=== PATIENT | female | born 1995 | race Caucasian/White ===

== ENCOUNTER 2018-05-21 12:43 | Outpatient (CLI) | payer OTHER ==
--- NOTE | 2018-05-21 15:40 | ULT ---
OB ULTRASOUND: 05/21/18 HISTORY: Patient feels like she is leaking fluid. FINDINGS: A single live intrauterine gestation is seen and measurements corresponding to an estimated gestation al age of 27 weeks, 4 days and SHIN at 08/16/18. Estimated weight measures 1052 grams (2 lb. 5 oz.). measurements are as follows: BPD 6.80 cm 27 weeks, 3 days HC 25.85 cm 28 weeks, 1 day AC 23.07 cm 27 weeks, 3 days FL 4.98 cm 26 weeks, 6 days JAELYN measurement is 5.9 cm. The placenta is anteriorly located without evidence of placenta previa. The umbilical cord is at the internal os. Three vessel cord, cord insertion, kidneys, bladder, stomach, four chambered heart, lateral ventricle s, cerebellum, spine, upper and lower extremities are visualized and demonstrate no definite an omalies. Lips and nose are difficult to visualize. Cervical length measures 2.8 cm. IMPRESSION: 1. Single live IUP of 27 weeks, 4 days estimated gestational age and SHIN at 08/16/18. 2. Oligohydramnios. 3. Vasa previa. POS: [facility]
== END 2018-05-21 12:44 | disposition home or self-care (01) ==
LOC: SCSULT 12:43
PROVIDERS: ATTEND Family Medicine
DX: O09.92 Supervision of high risk pregnancy, unspecified, second trimester (principal); O41.02X0 Oligohydramnios, second trimester, not applicable or unspecified; O69.4XX0 Labor and delivery complicated by vasa previa, not applicable or unspecified; Z3A.27 27 weeks gestation of pregnancy
CPT/HCPCS: 76805

== ENCOUNTER 2018-05-23 11:37 | Day surgery (SDC) | payer OTHER ==
[2018-05-23 13:00] VITALS: TEMP 99.1; BMI 27.7
[2018-05-23] MEDS ORDERED: Betamet Acet/Betamet Na Ph 30 MG/5 ML VIAL IM SCH (13:30)
[2018-05-23] MEDS ORDERED: Betamet Acet/Betamet Na Ph 30 MG/5 ML VIAL ONE (13:44)
--- NOTE | 2018-05-23 14:12 | PDOC.LDHP ---
Labor and Delivery H&P Chief complaint: loss of fluid HPI: 23 y/o at 27w6d, patient of Dr. Verdin, presents with LOF x 3 days. She was seen for her first OB visit at [facility] on Saturday and had an ultrasound performed. Natalee at was reviewing the results today and noted low fluid. After calling the patient, she admitted to have been experiencing leaking for the last few days with spotting. Having multiple gushes with persistent leaking. Denies heavy VB, ctx, or decreased FM. Of note, previous US reports vasa previa. ROS neg for HEENT, cv, pulm, gi, gu, neuro, psych, skin, musculoskeletal or constitutional symptoms other than mentioned above. OB History Details: 1st with 3rd degree laceration 2nd primary LTCS due to previous 3rd degree Now desires Current complications: none Past Medical History: None Current medications: pre-akosua vitamins Previous surgical history: low tranverse CS Social history: none - Physical Exam Vital signs reviewed and normal: yes General: NAD, resting Lungs: nonlabored breathing Abdomen: gravid Extremeties: no edema FHT: category 1 (140s, mod variability, + accels, no decels) [place] contractions every: none - Vaginal Exam cm dilated: 0 (SSE neg for pooling or valsalva.) Effacement: 0% Station: -3 - OB Labs Additional Labs: Amnisure negative - Assessment 23 y/o at 27w6d with no e/o SROM. Repeat ultrasound with no e/o vasa previa but does have prominent cervical vessels. JAELYN 7cm, with DVP of 2.91 so no e/o oligohydramnios. VP3 + for gardnerella. - Plan -: D/c home with precautions. Advised to follow up with Dr. Verdin next week. GC/ CT, pending. Given Rx for Flagyl.
[2018-05-23 14:16] LABS: Amnisure Test No Membranes Rupture (No Rupture)
[2018-05-23 14:17] LABS: Amnisure Internal Control QC ACCEPTABLE (ACCEPTABLE)
--- NOTE | 2018-05-23 14:52 | ULT ---
LIMITED OB ULTRASOUND: DATE: 05/23/2018. PROVIDED CLINICAL HISTORY: Cervical pain. FINDINGS: Limited sonographic interrogation of the gravid uterus was performed. There is redemonstration of a single live intrauterine gestation in cephalic presentation with heart rate of 150 b.p.m. Amniotic f luid index is 7.0. The placental margin appears remote from the internal cervical os. There is abno rmal vascularity seen about the internal cervical os. There is no sonographic evidence to suggest th at this vascularity is related to the umbilical cord. IMPRESSION: 1. Abnormal vascularity of the uterine cervix, without sonographic evidence for a connection to the umbilical cord. 2. Amniotic fluid index is 7.0. POS: [facility]
[2018-05-26 22:19] LABS: Chlamydia by PCR Not Detected (NotDetected); GC by PCR Not Detected (NotDetected)
== END 2018-05-23 15:00 | disposition home or self-care (01) ==
LOC: SCSER 11:37 → L&D/OP 12:26
PROVIDERS: ATTEND Family Medicine
DX: O26.852 Spotting complicating pregnancy, second trimester (principal); O23.592 Infection of other part of genital tract in pregnancy, second trimester; B96.89 Other specified bacterial agents as the cause of diseases classified elsewhere; Z3A.27 27 weeks gestation of pregnancy
CPT/HCPCS: 76816; 84112; 87081; 87480; 87491; 87510; 87591; 87660; 99284; 99285; J0702

== ENCOUNTER 2018-06-03 22:47 | Inpatient (IN) | payer OTHER ==
[2018-06-03 23:29] VITALS: BMI 27.7
[2018-06-04 00:18] LABS: Amnisure Internal Control QC ACCEPTABLE (ACCEPTABLE); Amnisure Test RUPTURE DETECTED (No Rupture)
[2018-06-04] MEDS ORDERED: Calcium Gluc 4.6 MEQ/10 ML (100 MG/ML) SLOW IVP PRN (00:29)
[2018-06-04] MEDS ORDERED: Meperidine HCl/PF 25 MG/ML VIAL IM/IV PRN (00:29)
[2018-06-04] MEDS ORDERED: Ondansetron PF 4 MG/2 ML Vial IVP PRN (00:29)
--- NOTE | 2018-06-04 00:42 | PDOC.LDHP ---
Labor and Delivery H&P Chief complaint: loss of fluid HPI: 23 yo WF presents c/o loss of fluid thru out the day. Denies UCs but has had spotting. Seen 2 weeks ago with similar c/o, Amnisure was negative but JAELYN was only 7 at that time. Current gestational age (weeks): 29 Due date: 08/16/18 Dating criteria: second trimester ultrasound Grav: 4 Para: 2 OB History Details: Limited PNC with Dr. Verdin x 2 visits. Current complications: other (as above) Abnormal US findings: No Past Medical History: none Previous surgical history: other (T&A, hysteroscopic polypectomy) Allergies/Adverse Reactions: Allergies Allergy/AdvReac Type Severity Reaction Status Date / Time No Known Allergies Allergy Unverified 06/03/18 23:47 Social history: none - Physical Exam Vital signs reviewed and normal: yes General: NAD Heart: RRR Lungs: CTAB Abdomen: gravid Extremeties: trace edema FHT: category 1 [place] contractions every: no UCs seen - OB Labs Blood type: unknown RH: unknown Antibody Screen: unknown HIV: unknown RPR: unknown HEPSAg: unknown 1 hour GCT: unknown GBS: negative - Assessment L&D Assessment: premature rupture of membranes - Plan Plan: admit to L&D, magnesium for neuroprotection (Ampicillin and Zmax for latency, steroids for FLM, USG for EFW), informed consent obtained (deliver for chorioamnionitis, concern or labor, Dr. Verdin notified)
[2018-06-04] MEDS ORDERED: Ampicillin 2 GM in Sodium Chloride 0.9% 100 ML IVPB SCH (00:45)
[2018-06-04] MEDS ORDERED: Azithromycin 500 MG in Sodium Chloride 0.9% 250 ML 250 ML IVPB SCH (00:45)
[2018-06-04] MEDS: Lactated Ringer's 1,000 ML IV SCH ×3 (00:52→20:29)
[2018-06-04] MEDS: Betamet Acet/Betamet Na Ph 30 MG/5 ML VIAL IM SCH (00:53)
[2018-06-04] MEDS ORDERED: Magnesium Sulfate 20 GM/WATER 500 ML BAG IVPB SCH (01:00)
[2018-06-04 01:06] LABS: Hemoglobin 11.2 g/dL (12.0-16.0); Mean Corpuscular HGB CONC 34.1 g/dL (32.0-36.0); Mean Corpuscular Hemoglobin 30.4 pg (27.0-31.0); Mean Corpuscular Volume 89.4 fL (78.0-98.0); Mean Platelet Volume 7.6 fL (7.4-10.4); Platelet Count 186 thou/uL (130-400); RBC Distribution Width 14.1 % (11.5-14.5); Red Blood Cell (RBC) Count 3.69 mill/uL (4.20-5.40); White Blood Cell (WBC) Count 9.8 thou/uL (4.8-10.8)
[2018-06-04 01:47] LABS: Syphilis Antibody Nonreactive (Nonreactive); Syphilis Antibody Index 0.03 S/CO (<1.00 Non-Reactive)
[2018-06-04 02:05] LABS: HBSAg Index 0.21 S/CO (0-0.99); Hep B Surf Ag Non-Reactive S/CO (NonReactive)
[2018-06-04] MEDS: Ampicillin 2 GM in Sodium Chloride 0.9% 100 ML IVPB SCH ×3 (07:06→18:15)
--- NOTE | 2018-06-04 07:35 | ULT ---
LIMITED OBSTETRICAL ULTRASOUND: Date: 06/04/18 INDICATION: History of premature rupture of membranes at 29 weeks of intrauterine . FINDINGS: There is a single, live intrauterine gestation in vertex presentation with cardiac activity noted at 137 beats/minute. The cervical length is 2.6 cm. The amniotic fluid index is 3.8 cm. Placenta is ante rior in location without evidence of previa. The biparietal diameter measures 7.58 cm, giving an estimated gestational age of 30 weeks/3 days (65t h percentile by Hadlock). The head circumference measured 28.18 cm, giving an estimated gestational age of 30 weeks/6 days (55t h percentile). The abdominal circumference was 24.19 cm, giving an estimated gestational age of 28 weeks/6 days (23r d percentile). The femoral length was 5.27 cm, giving an estimated gestational age of 28 weeks/5 days (15h percentil e. The estimated weight is 1336 gm (22nd percentile). IMPRESSION: 1. Single live intrauterine gestation. 2. Oligohydramnios of 3.8 cm. This previously measured 7.0 cm on the comparison dated 05/23/18. 3. Estimated weight is 2 lbs and 15 oz (+/- 7 oz) (22nd percentile). 4. Average gestational age by ultrasound is 29 weeks/6 days. Estimated date of delivery is 08/14/18. 5. Cervical length was 2.6 cm. POS: [facility]
[2018-06-04] MEDS: Magnesium Sulfate 20 gm/500 ml 20 GM/500 ML BAG IVPB SCH ×2 (10:32→20:26)
[2018-06-04] MEDS: Butorphanol Tartrate 1 MG/ML VIAL SLOW IVP PRN (20:28)
[2018-06-05] MEDS: Ampicillin 2 GM in Sodium Chloride 0.9% 100 ML IVPB SCH ×4 (00:43→19:22)
[2018-06-05] MEDS: Betamet Acet/Betamet Na Ph 30 MG/5 ML VIAL IM SCH (00:45)
[2018-06-05] MEDS: Magnesium Sulfate 20 gm/500 ml 20 GM/500 ML BAG IVPB SCH ×2 (09:52→19:24)
[2018-06-05] MEDS: Acetaminophen 500 MG TAB PO PRN (17:43)
[2018-06-06] MEDS: Ampicillin 2 GM in Sodium Chloride 0.9% 100 ML IVPB SCH ×4 (01:27→20:21)
[2018-06-06] MEDS: Lactated Ringer's 1,000 ML IV SCH ×2 (12:14→20:22)
[2018-06-07] MEDS: AMOXicillin 250 MG CAP PO SCH ×4 (00:38→18:08)
[2018-06-07] MEDS: Prenatal Vitamin 1 TAB PO SCH (09:28)
[2018-06-07] MEDS: Azithromycin 250 MG TAB PO SCH (09:28)
[2018-06-07] MEDS: Floranex Packet PO SCH (12:15)
[2018-06-07] MEDS: Acetaminophen 500 MG TAB PO PRN (12:21)
[2018-06-08] MEDS: AMOXicillin 250 MG CAP PO SCH ×5 (00:14→23:47)
[2018-06-08] MEDS: Prenatal Vitamin 1 TAB PO SCH (10:07)
[2018-06-08] MEDS: Azithromycin 250 MG TAB PO SCH (10:07)
[2018-06-08] MEDS: Floranex Packet PO SCH (10:07)
[2018-06-08 21:17] LABS: Bilirubin Negative (Negative); Blood, Urine Negative (Negative); Clarity TURBID (Clear); Glucose, Urine (Dipstick) Negative (Negative); Leukocyte Negative (Negative); Nitrite Negative (Negative); Protein, Urine (Dipstick) Negative (Neg-Trace); Specific Gravity, Urine 1.014 (1.002-1.036)
[2018-06-08 21:18] LABS: Bacteria/HPF None Seen HPF (None Seen); Hyaline Casts/LPF 4-6 HYALINE CAST LPF (0-3 Hyaline); Pathc Cast-AUWi Flag 0.72 (0-2.49); RBC/HPF 0-3 HPF (0-3); Squamous Epithelial 0-3 HPF (0-3); WBC/HPF 0-3 HPF (0-3)
[2018-06-08] MEDS: Lactated Ringer's 1,000 ML IV SCH (22:16)
[2018-06-08] MEDS: Butorphanol Tartrate 1 MG/ML VIAL SLOW IVP PRN (22:16)
[2018-06-09] MEDS: Lactated Ringer's 1,000 ML IV SCH ×2 (03:16→10:42)
[2018-06-09] MEDS: AMOXicillin 250 MG CAP PO SCH ×3 (06:16→23:57)
[2018-06-09] MEDS: Prenatal Vitamin 1 TAB PO SCH (08:54)
[2018-06-09] MEDS: Floranex Packet PO SCH (08:54)
[2018-06-09] MEDS: Azithromycin 250 MG TAB PO SCH (08:55)
[2018-06-10] MEDS: Lactated Ringer's 1,000 ML IV SCH ×2 (05:50→23:34)
[2018-06-10] MEDS: AMOXicillin 250 MG CAP PO SCH ×3 (05:51→19:29)
[2018-06-10] MEDS: Azithromycin 250 MG TAB PO SCH (09:38)
[2018-06-10] MEDS: Floranex Packet PO SCH (09:40)
[2018-06-10] MEDS: Prenatal Vitamin 1 TAB PO SCH (10:05)
[2018-06-11] MEDS: Lactated Ringer's 1,000 ML IV SCH ×3 (00:33→23:40)
[2018-06-11] MEDS: AMOXicillin 250 MG CAP PO SCH ×4 (01:12→19:52)
[2018-06-11] MEDS: Floranex Packet PO SCH (09:56)
[2018-06-11] MEDS: Prenatal Vitamin 1 TAB PO SCH (09:56)
[2018-06-12] MEDS: AMOXicillin 250 MG CAP PO SCH ×4 (01:24→21:13)
[2018-06-12] MEDS: Lactated Ringer's 1,000 ML IV SCH (06:49)
[2018-06-12] MEDS: Prenatal Vitamin 1 TAB PO SCH (08:51)
[2018-06-12] MEDS: Floranex Packet PO SCH (08:51)
[2018-06-13] MEDS: AMOXicillin 250 MG CAP PO SCH ×2 (02:51→08:34)
[2018-06-13] MEDS: Prenatal Vitamin 1 TAB PO SCH (08:34)
[2018-06-13] MEDS: Floranex Packet PO SCH (08:34)
[2018-06-13] MEDS: Acetaminophen 500 MG TAB PO PRN (15:16)
[2018-06-14] MEDS: AMOXicillin 250 MG CAP PO SCH ×7 (00:21→22:00)
[2018-06-14] MEDS: Promethazine HCl 25 MG/ML VIAL IM PRN (09:25)
[2018-06-14] MEDS: Acetaminophen 500 MG TAB PO PRN ×2 (09:25→18:03)
[2018-06-14] MEDS: Floranex Packet PO SCH (18:03)
[2018-06-14] MEDS: Prenatal Vitamin 1 TAB PO SCH (18:03)
[2018-06-15] MEDS: AMOXicillin 250 MG CAP PO SCH ×3 (09:18→20:53)
[2018-06-15] MEDS: Prenatal Vitamin 1 TAB PO SCH (09:18)
[2018-06-15] MEDS: Floranex Packet PO SCH (09:20)
[2018-06-15] MEDS: Lactated Ringer's 1,000 ML IV SCH ×5 (12:15→20:50)
[2018-06-15] MEDS: Promethazine HCl 25 MG/ML VIAL IM PRN (12:29)
[2018-06-15] MEDS: Acetaminophen 500 MG TAB PO PRN (12:53)
[2018-06-15] MEDS: Butorphanol Tartrate 1 MG/ML VIAL SLOW IVP PRN (18:30)
[2018-06-16] MEDS: Lactated Ringer's 1,000 ML IV SCH ×3 (00:38→16:59)
[2018-06-16] MEDS: Prenatal Vitamin 1 TAB PO SCH (08:38)
[2018-06-16] MEDS: Floranex Packet PO SCH (08:38)
[2018-06-16] MEDS: AMOXicillin 250 MG CAP PO SCH ×3 (08:39→21:54)
[2018-06-16] MEDS: Docusate Calcium (SURFAK) 240 MG CAP PO SCH (09:42)
[2018-06-16] MEDS: Lactinex Tablet PO SCH (16:58)
[2018-06-17] MEDS: Lactated Ringer's 1,000 ML IV SCH ×3 (07:08→17:20)
[2018-06-17] MEDS: Lactinex Tablet PO SCH (09:25)
[2018-06-17] MEDS: Prenatal Vitamin 1 TAB PO SCH (09:25)
[2018-06-17] MEDS: Docusate Calcium (SURFAK) 240 MG CAP PO SCH (09:25)
[2018-06-17] MEDS: AMOXicillin 250 MG CAP PO SCH ×3 (09:25→21:01)
[2018-06-18] MEDS: Prenatal Vitamin 1 TAB PO SCH (09:24)
[2018-06-18] MEDS: AMOXicillin 250 MG CAP PO SCH ×3 (09:24→20:32)
[2018-06-18] MEDS: Docusate Calcium (SURFAK) 240 MG CAP PO SCH (09:24)
[2018-06-18] MEDS: Lactinex Tablet PO SCH (09:24)
[2018-06-18] MEDS ORDERED: Ondansetron HCl/PF 4 MG in Sodium Chloride 0.9% 50 ML IVPB PRN (11:37)
[2018-06-18] MEDS: Ondansetron ODT 8 MG TAB SL PRN (11:56)
[2018-06-18] MEDS: Lactated Ringer's 1,000 ML IV SCH (19:28)
[2018-06-19] MEDS: Lactated Ringer's 1,000 ML IV SCH ×3 (02:42→19:12)
[2018-06-19] MEDS: Prenatal Vitamin 1 TAB PO SCH (08:42)
[2018-06-19] MEDS: AMOXicillin 250 MG CAP PO SCH ×3 (08:42→21:03)
[2018-06-19] MEDS: Lactinex Tablet PO SCH (08:42)
[2018-06-19] MEDS: Docusate Calcium (SURFAK) 240 MG CAP PO SCH (08:43)
[2018-06-20] MEDS: Lactated Ringer's 1,000 ML IV SCH (05:26)
[2018-06-20] MEDS: Prenatal Vitamin 1 TAB PO SCH (09:42)
[2018-06-20] MEDS: AMOXicillin 250 MG CAP PO SCH ×2 (09:42→15:11)
[2018-06-20] MEDS: Lactinex Tablet PO SCH (09:42)
[2018-06-20] MEDS: Docusate Calcium (SURFAK) 240 MG CAP PO SCH (09:43)
[2018-06-21] MEDS: Acetaminophen 500 MG TAB PO PRN ×2 (01:44→07:18)
[2018-06-21] MEDS: Prenatal Vitamin 1 TAB PO SCH (08:39)
[2018-06-21] MEDS: Ondansetron ODT 8 MG TAB SL PRN (15:57)
[2018-06-21] MEDS: Lactated Ringer's 1,000 ML IV SCH (23:00)
[2018-06-22] MEDS: Prenatal Vitamin 1 TAB PO SCH (10:19)
[2018-06-22] MEDS: Docusate Calcium (SURFAK) 240 MG CAP PO SCH ×2 (10:19→15:04)
[2018-06-22] MEDS: Lactinex Tablet PO SCH ×2 (10:19→15:04)
[2018-06-22] MEDS: Lactated Ringer's 1,000 ML IV SCH ×3 (15:04→19:31)
[2018-06-23] MEDS: Lactated Ringer's 1,000 ML IV SCH ×4 (03:37→18:55)
[2018-06-23] MEDS: Prenatal Vitamin 1 TAB PO SCH (09:49)
[2018-06-23] MEDS: Docusate Calcium (SURFAK) 240 MG CAP PO SCH (09:49)
[2018-06-23] MEDS: Acetaminophen 500 MG TAB PO PRN (09:50)
[2018-06-23] MEDS: Lactinex Tablet PO SCH (09:50)
[2018-06-23] MEDS: Butorphanol Tartrate 1 MG/ML VIAL SLOW IVP PRN ×3 (10:41→21:43)
[2018-06-23 11:25] LABS: Bilirubin Negative (Negative); Blood, Urine Negative (Negative); Glucose, Urine (Dipstick) Negative (Negative); Leukocyte Negative (Negative); Nitrite Negative (Negative); Protein, Urine (Dipstick) Negative (Neg-Trace); Urobilinogen 0.2 mg/dL (0.2-1.0); pH, Urine 7.5 (5.0-9.0)
[2018-06-23 11:26] LABS: Clarity CLEAR (Clear)
[2018-06-23 12:46] LABS: Bacteria/HPF None Seen HPF (None Seen); Hyaline Casts/LPF NONE SEEN LPF (0-3 Hyaline); RBC/HPF None Seen HPF (0-3); Squamous Epithelial 0-3 HPF (0-3); WBC/HPF None Seen HPF (0-3)
[2018-06-24] MEDS: Lactated Ringer's 1,000 ML IV SCH ×4 (03:03→23:18)
[2018-06-24] MEDS: Prenatal Vitamin 1 TAB PO SCH (09:19)
[2018-06-24] MEDS: Docusate Calcium (SURFAK) 240 MG CAP PO SCH (09:19)
[2018-06-24] MEDS: Lactinex Tablet PO SCH (10:14)
[2018-06-24] MEDS: Ondansetron ODT 8 MG TAB SL PRN (10:28)
[2018-06-24] MEDS ORDERED: Diphenoxylate HCl/Atropine Tablet PO PRN (16:59)
--- NOTE | 2018-06-25 06:19 | PDOC.EVN ---
Event Note - Event Note Event Note: Resting, no complaints. VSS AF. FHTs are stable. A/P; 32 4/7 weeks SROM, s/p ABX and steroids Cont. expectant mgmt, deliver for labor, chorioamnionitis or concern.
[2018-06-25] MEDS: Lactinex Tablet PO SCH (09:41)
[2018-06-25] MEDS: Docusate Calcium (SURFAK) 240 MG CAP PO SCH (09:41)
[2018-06-25] MEDS: Prenatal Vitamin 1 TAB PO SCH (09:41)
[2018-06-25] MEDS: Lactated Ringer's 1,000 ML IV SCH ×2 (21:41→21:44)
[2018-06-25] MEDS: Butorphanol Tartrate 1 MG/ML VIAL SLOW IVP PRN (21:44)
[2018-06-26] MEDS: Lactated Ringer's 1,000 ML IV SCH ×3 (01:55→20:30)
[2018-06-26] MEDS: Butorphanol Tartrate 1 MG/ML VIAL SLOW IVP PRN ×2 (03:36→13:10)
--- NOTE | 2018-06-26 06:20 | PDOC.EVN ---
Event Note - Event Note Event Note: 06/26/18 EGA: 32 weeks 5 days DX: PPROM, for (s/p ABX and Celestone) S. no new complaints o. VSSAFEBRILE no VB A/P: 32.5 weeks with PPROM...for . Continue expectant care.
[2018-06-26] MEDS: Lactinex Tablet PO SCH (11:13)
[2018-06-26] MEDS: Docusate Calcium (SURFAK) 240 MG CAP PO SCH (11:13)
[2018-06-26] MEDS: Prenatal Vitamin 1 TAB PO SCH (11:13)
[2018-06-26] MEDS: Ondansetron ODT 4 MG TAB SL PRN (13:10)
[2018-06-26] MEDS: HYDROcodone/Acetaminophen 5/325 mg Tablet PO PRN (13:40)
--- NOTE | 2018-06-26 13:58 | PDOC.EVN ---
Event Note - Event Note Event Note: CTSP c/o abdominal discomfort. VSS AF Pt. in no distress. Abdomen is soft. No guarding or rebound. FHTs stable. Only an occasional UC is seen. Plan: Observe for now.
--- NOTE | 2018-06-27 01:30 | PDOC.EVN ---
Event Note - Event Note Event Note: Pt sleeping, no voiced concerns this shift. VSS AF FHTs stable, irregular UCs seen throughout the day. A/P; 32 6/7 weeks, PROM s/p steroids and ABX. Deliver for labor, chorioamnionitis, concern.
[2018-06-27] MEDS: Lactated Ringer's 1,000 ML IV SCH ×2 (04:24→19:38)
[2018-06-27] MEDS: Docusate Calcium (SURFAK) 240 MG CAP PO SCH (10:23)
[2018-06-27] MEDS: Lactinex Tablet PO SCH (10:23)
[2018-06-27] MEDS: Prenatal Vitamin 1 TAB PO SCH (10:23)
--- NOTE | 2018-06-28 00:52 | PDOC.EVN ---
Event Note - Event Note Event Note: OBGYN director of loss prevention: 06/28/18 L&D APU1 EGA 33 weeks 0 days 0040 Patient seen at bedside, she is awake and comfortable. rare CTX. VSS afebrile Abd soft and NT A/P: PPROM at 33 weeks 0 days. S/p celestone and ABX. I reviewed her OHB HX with her...first had a 4th degree, second was elective CS due to 4th degree lac HX and PPH with the first (by her report), and she is still considering TOLAC. I did review Repeat CS with her as well as TOLAC. Risk of 4th degree would be expected to be less due to 34 week EGA. I reviewed with her that ACOG encourages TOLAC/. She is aware of the information. Continue expectant care.
[2018-06-28] MEDS: Butorphanol Tartrate 1 MG/ML VIAL SLOW IVP PRN (03:55)
[2018-06-28] MEDS: Lactated Ringer's 1,000 ML IV SCH ×2 (04:02→21:09)
[2018-06-28] MEDS: Lactinex Tablet PO SCH (08:55)
[2018-06-28] MEDS: Prenatal Vitamin 1 TAB PO SCH (08:55)
[2018-06-28] MEDS: Ondansetron ODT 4 MG TAB SL PRN (15:47)
--- NOTE | 2018-06-29 00:32 | PDOC.EVN ---
Event Note - Event Note Event Note: 33 1/7 weeks. Sleeping. No c/o over the day. VSS AF. Monitoring has been reassuring. Plan: Cont. present mgmt., deliver for labor, chorioamnionitis or concern.
[2018-06-29] MEDS: Docusate Calcium (SURFAK) 240 MG CAP PO SCH (09:03)
[2018-06-29] MEDS: Prenatal Vitamin 1 TAB PO SCH (09:03)
[2018-06-29] MEDS: Lactinex Tablet PO SCH (09:03)
[2018-06-29] MEDS: Ondansetron ODT 4 MG TAB SL PRN (10:45)
[2018-06-30] MEDS: Docusate Calcium (SURFAK) 240 MG CAP PO SCH ×2 (09:20→19:34)
[2018-06-30] MEDS: Prenatal Vitamin 1 TAB PO SCH (09:20)
[2018-06-30] MEDS: Lactinex Tablet PO SCH (10:06)
[2018-06-30] MEDS: Lactated Ringer's 1,000 ML IV SCH (19:34)
[2018-07-01] MEDS: HYDROcodone/Acetaminophen 5/325 mg Tablet PO PRN (00:14)
[2018-07-01] MEDS: Lactated Ringer's 1,000 ML IV SCH ×3 (01:09→18:00)
[2018-07-01] MEDS: Lactinex Tablet PO SCH (09:35)
[2018-07-01] MEDS: Docusate Calcium (SURFAK) 240 MG CAP PO SCH (09:36)
[2018-07-01] MEDS: Prenatal Vitamin 1 TAB PO SCH (09:36)
[2018-07-01] MEDS ORDERED: Diphenoxylate HCl/Atropine Tablet PO PRN (16:24)
[2018-07-01] MEDS ORDERED: Promethazine HCl 25 MG/ML VIAL IM PRN (16:25)
[2018-07-01] MEDS ORDERED: Ondansetron PF 4 MG/2 ML Vial IVP PRN (16:26)
[2018-07-01] MEDS: Acetaminophen 500 MG TAB PO PRN (22:23)
[2018-07-02] MEDS: Prenatal Vitamin 1 TAB PO SCH (08:44)
[2018-07-02] MEDS: Docusate Calcium (SURFAK) 240 MG CAP PO SCH (08:45)
[2018-07-02] MEDS: Butorphanol Tartrate 1 MG/ML VIAL SLOW IVP PRN ×2 (13:05→22:48)
[2018-07-02] MEDS ORDERED: Lactated Ringer's 1,000 ML IV SCH (14:15)
[2018-07-02] MEDS: Acetaminophen 500 MG TAB PO PRN (16:24)
[2018-07-03] MEDS: Prenatal Vitamin 1 TAB PO SCH (08:52)
[2018-07-03] MEDS: Docusate Calcium (SURFAK) 240 MG CAP PO SCH (08:52)
[2018-07-03] MEDS: Butorphanol Tartrate 1 MG/ML VIAL SLOW IVP PRN (22:10)
[2018-07-03] MEDS ORDERED: Lactated Ringer's 1,000 ML IV SCH (23:00)
[2018-07-03] MEDS ORDERED: Bicitra 30 ML UDCUP ONE (23:33)
[2018-07-03] MEDS ORDERED: NS / Oxytocin 40 units/1000ml 1,000 ML ONE (23:53)
[2018-07-03] MEDS ORDERED: Lidocaine 1% (PF) 30 ML VIAL ONE (23:53)
[2018-07-03 23:56] LABS: Hemoglobin 12.4 g/dL (12.0-16.0); Mean Corpuscular HGB CONC 33.2 g/dL (32.0-36.0); Mean Corpuscular Hemoglobin 29.8 pg (27.0-31.0); Mean Corpuscular Volume 89.8 fL (78.0-98.0); Mean Platelet Volume 7.3 fL (7.4-10.4); Platelet Count 122 thou/uL (130-400); RBC Distribution Width 14.1 % (11.5-14.5); Red Blood Cell (RBC) Count 4.15 mill/uL (4.20-5.40); White Blood Cell (WBC) Count 5.5 thou/uL (4.8-10.8)
[2018-07-04] MEDS ORDERED: Bisacodyl 10 MG SUPP PR PRN (00:29)
[2018-07-04] MEDS ORDERED: Milk Of Magnesia 30 ML UDCUP PO PRN (00:29)
[2018-07-04] MEDS ORDERED: Preparation H Ointment 28 GM TUBE PR PRN (00:29)
[2018-07-04] MEDS ORDERED: Benzocaine-Menthol 82.5 ML CAN TOP PRN (00:29)
[2018-07-04] MEDS ORDERED: Ondansetron PF 4 MG/2 ML Vial IVP PRN (00:29)
[2018-07-04] MEDS ORDERED: Lanolin Ointment 7 GM TUBE TOP PRN (00:29)
[2018-07-04] MEDS ORDERED: NS / Oxytocin 40 units/1000ml 1,000 ML IV SCH (00:29)
[2018-07-04] MEDS: HYDROcodone/Acetaminophen 5/325 mg Tablet PO PRN ×4 (00:57→20:48)
[2018-07-04 01:10] LABS: Syphilis Antibody Nonreactive (Nonreactive); Syphilis Antibody Index 0.04 S/CO (<1.00 Non-Reactive)
[2018-07-04 01:11] LABS: HBSAg Index 0.25 S/CO (0-0.99); Hep B Surf Ag Non-Reactive S/CO (NonReactive)
[2018-07-04 01:16] LABS: HIV (1/2) Antibody/Antigen Non-Reactive (NonReactive); HIV 1/2 INDEX 0.13 S/CO (<1.00)
[2018-07-04] MEDS ORDERED: Bicitra 30 ML UDCUP ONE (01:42)
[2018-07-04] MEDS: Ibuprofen 800 MG TAB PO SCH ×3 (05:17→22:47)
[2018-07-04] MEDS: Prenatal Vitamin 1 TAB PO SCH (08:18)
[2018-07-04] MEDS: Ferrous Sulfate 325 MG TAB PO SCH ×2 (08:19→18:45)
[2018-07-04] MEDS: Docusate Calcium (SURFAK) 240 MG CAP PO SCH ×2 (08:19→22:48)
[2018-07-04] MEDS ORDERED: Adacel (T-DAP) 0.5 ML SYRINGE IM ONE (09:00)
[2018-07-04 09:25] LABS: Hemoglobin 9.9 g/dL (12.0-16.0); Mean Corpuscular HGB CONC 34.5 g/dL (32.0-36.0); Mean Corpuscular Hemoglobin 29.7 pg (27.0-31.0); Mean Platelet Volume 7.4 fL (7.4-10.4); Platelet Count 143 thou/uL (130-400); RBC Distribution Width 13.6 % (11.5-14.5); Red Blood Cell (RBC) Count 3.34 mill/uL (4.20-5.40); White Blood Cell (WBC) Count 15.7 thou/uL (4.8-10.8)
[2018-07-04] MEDS ORDERED: Acetaminophen 500 MG TAB PO PRN (23:10)
[2018-07-04] MEDS ORDERED: Azithromycin 250 MG TAB PO SCH (23:15)
[2018-07-04] MEDS ORDERED: SODIUM CHLORIDE 0.9% IVPB SCH (23:30)
[2018-07-04] MEDS ORDERED: GENTAMICIN SULFATE IVPB SCH (23:30)
[2018-07-04] MEDS ORDERED: Ampicillin 2 GM in Sodium Chloride 0.9% 100 ML IVPB SCH (23:59)
[2018-07-05] MEDS ORDERED: Sodium Chloride 0.9% 10 ML ONE (00:06)
[2018-07-05 01:38] LABS: Bilirubin Small (Negative); Blood, Urine Small (Negative); Clarity CLEAR (Clear); Glucose, Urine (Dipstick) Negative (Negative); Leukocyte Negative (Negative); Nitrite Negative (Negative); Protein, Urine (Dipstick) 30 mg/dL (Neg-Trace); Specific Gravity, Urine 1.027 (1.002-1.036); pH, Urine 7.5 (5.0-9.0)
[2018-07-05 01:41] LABS: Bacteria/HPF None Seen HPF (None Seen)
[2018-07-05 01:43] LABS: Hyaline Casts/LPF 0-3 HYALINE CAST LPF (0-3 Hyaline); Oval Fat Bodies/HPF None Seen HPF (None Seen); Sperm/HPF None Seen HPF (None Seen); Transitional Epithelial NONE SEEN HPF (0-3); Trichomonas/HPF None Seen HPF (None Seen); Yeast-All Forms None Seen HPF (None Seen)
[2018-07-05 01:45] LABS: Urine Culture Reflex No No
[2018-07-05] MEDS: HYDROcodone/Acetaminophen 5/325 mg Tablet PO PRN ×2 (03:32→10:53)
[2018-07-05] MEDS: Ibuprofen 800 MG TAB PO SCH ×3 (05:19→21:38)
[2018-07-05] MEDS: Ampicillin 2 GM in Sodium Chloride 0.9% 100 ML IVPB SCH ×3 (07:40→20:56)
[2018-07-05 08:20] LABS: #Eosinphils 0.1 thou/uL (0.0-0.7); #Lymphocytes 0.7 thou/uL (1.20-3.40); #Monocytes 0.7 thou/uL (0.11-0.59); #Neutrophils 8.4 thou/uL (1.40-6.50); %Basophils 0.2 % (0.0-1.0); %Eosinophils 1.5 % (0.0-10.0); %Lymphocytes 7.1 % (21.0-51.0); %Monocytes 7.1 % (0.0-10.0); %Neutrophils 84.1 % (42.0-75.0); Hemoglobin 8.9 g/dL (12.0-16.0); Mean Corpuscular HGB CONC 34.4 g/dL (32.0-36.0); Mean Corpuscular Hemoglobin 30.2 pg (27.0-31.0); Mean Platelet Volume 7.5 fL (7.4-10.4); Platelet Count 143 thou/uL (130-400); RBC Distribution Width 13.9 % (11.5-14.5); Red Blood Cell (RBC) Count 2.95 mill/uL (4.20-5.40)
[2018-07-05] MEDS: Prenatal Vitamin 1 TAB PO SCH (10:53)
[2018-07-05] MEDS: Ferrous Sulfate 325 MG TAB PO SCH ×2 (10:53→18:33)
[2018-07-05] MEDS: Docusate Calcium (SURFAK) 240 MG CAP PO SCH ×2 (10:54→21:38)
[2018-07-05] MEDS ORDERED: Lactated Ringer's 1,000 ML IV SCH (13:45)
[2018-07-05] MEDS ORDERED: Sodium Chloride 0.9% 20 ML ONE (21:23)
[2018-07-05] MEDS ORDERED: Gentamicin Sulfate 270 MG in Sodium Chloride 0.9% 100 ML IVPB SCH (23:30)
[2018-07-06] MEDS: Ampicillin 2 GM in Sodium Chloride 0.9% 100 ML IVPB SCH ×3 (03:10→13:34)
[2018-07-06] MEDS: HYDROcodone/Acetaminophen 5/325 mg Tablet PO PRN ×2 (03:20→08:12)
[2018-07-06] MEDS: Simethicone Chewable 80 MG TAB PO SCH ×5 (03:38→22:47)
[2018-07-06] MEDS: Ibuprofen 800 MG TAB PO SCH ×3 (06:37→22:44)
[2018-07-06] MEDS: Prenatal Vitamin 1 TAB PO SCH (08:12)
[2018-07-06] MEDS: Ferrous Sulfate 325 MG TAB PO SCH ×2 (08:12→18:14)
[2018-07-06] MEDS: Docusate Calcium (SURFAK) 240 MG CAP PO SCH ×2 (08:12→22:44)
[2018-07-06] MEDS: Amoxicillin/Potassium Clav 500 MG TAB PO SCH ×2 (15:06→22:44)
[2018-07-07] MEDS: Ibuprofen 800 MG TAB PO SCH ×2 (06:49→13:17)
[2018-07-07 07:52] VITALS: BP 117/70; TEMP 98.1
[2018-07-07] MEDS: Prenatal Vitamin 1 TAB PO SCH (08:45)
[2018-07-07] MEDS: Docusate Calcium (SURFAK) 240 MG CAP PO SCH (08:45)
[2018-07-07] MEDS: Simethicone Chewable 80 MG TAB PO SCH (08:45)
[2018-07-07] MEDS: Amoxicillin/Potassium Clav 500 MG TAB PO SCH (08:45)
[2018-07-07] MEDS: Ferrous Sulfate 325 MG TAB PO SCH (08:45)
== END 2018-07-07 13:20 | disposition home or self-care (01) | DRG 805 ==
LOC: L&D/OP 22:47 → L&D 06-04 00:31 → 3SW 07-01 16:51 → L&D 07-03 23:29 → 3SW 07-04 02:40
PROVIDERS: ADMIT Family Medicine; ATTEND Family Medicine
PROC: 10E0XZZ Delivery of Products of Conception, External Approach (ICD-10-PCS; principal; 2018-07-03)
DX: O42.113 Preterm premature rupture of membranes, onset of labor more than 24 hours following rupture, third trimester (principal); O41.1230 Chorioamnionitis, third trimester, not applicable or unspecified; Z37.0 Single live birth; O86.12 Endometritis following delivery; Z3A.33 33 weeks gestation of pregnancy; O34.219 Maternal care for unspecified type scar from previous cesarean delivery; R12 Heartburn
CPT/HCPCS: 36415; 51702; 59025; 76815; 81001; 81003; 83735; 84112; 85025; 85027; 86780; 86850; 86900; 86901; 87040; 87081; 87340; 87389; 87480; 87510; 87660; 88307; 90715; 99285; A4353; J0290; J0456; J0595; J0702; J1580; J2001; J2405; J2550; J3475; J7050; Q0162

== ENCOUNTER 2019-01-10 12:44 | Emergency (ER) | payer OTHER, SELFPAY ==
[2019-01-10 13:23] LABS: Bacteria/HPF 1+ HPF (None Seen); Bilirubin Negative (Negative); Blood, Urine 2+ (Negative); Clarity Clear (Clear); Glucose, Urine (Dipstick) Normal (Negative); Leukocyte 25 Leu/uL (Negative); Nitrite Negative (Negative); Protein, Urine (Dipstick) 50 mg/dL (Neg-Trace); Urobilinogen Normal mg/dL (Less than 2)
[2019-01-10 13:27] LABS: #Eosinphils 0.3 thou/uL (0.0-0.7); #Lymphocytes 1.2 thou/uL (1.20-3.40); #Monocytes 0.6 thou/uL (0.11-0.59); #Neutrophils 5.4 thou/uL (1.40-6.50); %Basophils 0.5 % (0.0-1.0); %Eosinophils 3.7 % (0.0-10.0); %Lymphocytes 15.8 % (21.0-51.0); %Monocytes 8.4 % (0.0-10.0); %Neutrophils 71.7 % (42.0-75.0); Hemoglobin 14.2 g/dL (12.0-16.0); Mean Corpuscular HGB CONC 35.4 g/dL (32.0-36.0); Mean Corpuscular Hemoglobin 31.3 pg (27.0-31.0); Mean Corpuscular Volume 88.5 fL (78.0-98.0); Mean Platelet Volume 8.1 fL (7.4-10.4); Platelet Count 201 thou/uL (130-400); RBC Distribution Width 11.6 % (11.5-14.5); Red Blood Cell (RBC) Count 4.53 mill/uL (4.20-5.40); White Blood Cell (WBC) Count 7.6 thou/uL (4.8-10.8)
[2019-01-10 13:48] LABS: ALT (SGPT) 9 U/L (8-55); AST (SGOT) 14 U/L (5-34); Albumin 4.9 g/dL (3.5-5.0); Alkaline Phosphatase 77 U/L (40-110); Anion Gap 11 mmol/L (10-20); BUN (Urea Nitrogen) 7 mg/dL (7.0-18.7); Calc. Creatinine Clearance 0 mL/min (70-130); Calcium 9.6 mg/dL (7.8-10.44); Carbon Dioxide 23 mmol/L (22-29); Chloride 106 mmol/L (98-107); Estimated GFR-MDRD 86; Globulin 3.1 g/dL (2.4-3.5); Glucose 100 mg/dL (70-105); Potassium 3.3 mmol/L (3.5-5.1); Sodium 137 mmol/L (136-145)
--- NOTE | 2019-01-10 13:48 | ULT ---
Pelvic sonogram transabdominal and transvaginal imaging with duplex evaluation HISTORY: Pelvic pain and bleeding. FINDINGS: Urinary bladder is decompressed. Uterus measures up to 7.2 cm and has a normal appearance. Endometrium is 0.8 cm. No free fluid. Left ovary measures up to 2.8 cm. Follicles with good color and spectral Doppler flow. Right ovary no t visualized. No masses evident. IMPRESSION: No abnormalities are demonstrated.
[2019-01-10] MEDS ORDERED: Ondansetron PF 4 MG/2 ML Vial ONE ×2 (15:31→16:39)
== END 2019-01-10 16:48 | disposition home or self-care (01) ==
LOC: ERS 12:44
DX: O20.9 Hemorrhage in early pregnancy, unspecified (principal); O21.9 Vomiting of pregnancy, unspecified; Z3A.00 Weeks of gestation of pregnancy not specified
CPT/HCPCS: 36415; 76856; 80053; 81003; 81015; 84702; 85025; 86900; 86901; 87086; 96361; 96374; 96376; J2405

== ENCOUNTER 2019-01-15 14:14 | Day surgery (SDC) | payer OTHER, SELFPAY ==
[~2019-01-15 14:14] MED LIST: Dexamethasone 20 MG/5 ML VIAL ONE; Glycopyrrolate 0.2 MG/ML 5 ML SYRINGE ONE; Lidocaine 1% PF 5 ML VIAL ONE; Ondansetron PF 4 MG/2 ML Vial ONE; PHENYLEPHRINE-NS 100 MCG/ML 10 ML SYRINGE ONE; PROPOFOL 200 MG/20 ML VIAL ONE; Rocuronium Bromide 10 MG/ML (10ML VIAL) ONE; Succinylcholine Chloride 20 MG/ML 10 ml SYRINGE FS ONE
[2019-01-15 16:03] LABS: Bilirubin Negative (Negative); Blood, Urine Negative (Negative); Clarity Clear (Clear); Glucose, Urine (Dipstick) Normal (Negative); Leukocyte Negative Leu/uL (Negative); Nitrite Negative (Negative); Protein, Urine (Dipstick) Negative (Neg-Trace); Urobilinogen Normal mg/dL (Less than 2)
--- NOTE | 2019-01-15 17:47 | ULT ---
ULTRASOUND PELVIC ULTRASOUND TRANSVAGINAL DOPPLER DUPLEX: DATE: 01/15/2019 HISTORY: 23-year-old female with positive serum beta hCG presents with vaginal bleeding. Dr. Rowe reported the positive finding of ectopic by telephone to Dr. Erickson of the emergency Department at 5:38 PM on 01/15/2019 TECHNIQUE: Transabdominal transducer and endovaginal transducer used to visualize intrapelvic contents with marshall scale, color-flow, and spectral analysis. FINDINGS: Uterus: 7 x 3.5 x 6 cm. Endometrial stripe: 0.6 cm (6 mm). No intrauterine gestational sac. Small to moderate amount of anechoic free fluid in the cul-de-sac. Right ovary: 1.6 x 2.3 x 1.2 cm with blood flow demonstrated by Doppler. Broadly abutting the right ovary, there is a approximately 1.7 cm diameter round donut shaped mass wi th intermediate echogenicity, containing a central round well-circumscribed anechoic cystic structure measuring approximately 0.6 cm. It contains a yolk sac, but no embryonic pole and no heart activity. Left ovary: 2.5 x 2.9 x 2.4 cm. The left ovary contains a solid appearing approximately 2 x 1.8 x 1.7 cm lesion with heterogeneous in termediate-low echogenicity. There is hyperemic blood flow in the ovary around this lesion. Perhaps this represents a hemorrhagic corpus luteal cyst. IMPRESSION: 1. Evidence for right adnexal ectopic broadly abutting the right ovary: What appears to be a gestational sac containing a yolk sac, but no pole. 2. Small to moderate amount of free fluid in the cul-de-sac. 3. A 2 cm lesion in left ovary may represent hemorrhagic corpus luteal cyst.
[2019-01-15 18:08] LABS: #Basophils 0.1 thou/uL (0.0-0.2); #Eosinphils 0.3 thou/uL (0.0-0.7); #Lymphocytes 2.5 thou/uL (1.20-3.40); #Monocytes 0.7 thou/uL (0.11-0.59); #Neutrophils 3.8 thou/uL (1.40-6.50); %Basophils 0.9 % (0.0-1.0); %Eosinophils 3.5 % (0.0-10.0); %Lymphocytes 34.3 % (21.0-51.0); %Neutrophils 51.3 % (42.0-75.0); Mean Corpuscular HGB CONC 34.5 g/dL (32.0-36.0); Mean Corpuscular Volume 89.9 fL (78.0-98.0); Mean Platelet Volume 7.9 fL (7.4-10.4); Platelet Count 238 thou/uL (130-400); RBC Distribution Width 11.6 % (11.5-14.5); Red Blood Cell (RBC) Count 4.18 mill/uL (4.20-5.40); White Blood Cell (WBC) Count 7.4 thou/uL (4.8-10.8)
[2019-01-15] MEDS ORDERED: Morphine 4 MG/ML VIAL ONE (18:19)
[2019-01-15 18:28] LABS: ALT (SGPT) 8 U/L (8-55); AST (SGOT) 15 U/L (5-34); Albumin 4.5 g/dL (3.5-5.0); Alkaline Phosphatase 71 U/L (40-110); Anion Gap 11 mmol/L (10-20); BUN (Urea Nitrogen) 5 mg/dL (7.0-18.7); Bilirubin, Total 0.3 mg/dL (0.2-1.2); Calc. Creatinine Clearance 0 mL/min (70-130); Calcium 9.1 mg/dL (7.8-10.44); Carbon Dioxide 25 mmol/L (22-29); Chloride 107 mmol/L (98-107); Estimated GFR-MDRD Greater than 90; Glucose 74 mg/dL (70-105); Potassium 3.1 mmol/L (3.5-5.1); Protein, Total 7.5 g/dL (6.0-8.3); Sodium 140 mmol/L (136-145)
[2019-01-15] MEDS ORDERED: HYDROmorphone 0.5 MG/0.5 ML SYRINGE ONE (19:55)
[2019-01-15] MEDS ORDERED: Fentanyl 100 MCG/2 ML VIAL ONE (19:55)
[2019-01-15] MEDS ORDERED: Midazolam HCl 2 mg/2 ml Vial ONE (19:55)
[2019-01-15] MEDS ORDERED: Bupivacaine HCl 0.5%/Epinephrine 1:200,000/PF 30 ml Vial ONE (19:55)
[2019-01-15] MEDS ORDERED: Lidocaine 2% Jelly 5 ML TUBE ONE (19:55)
[2019-01-15] MEDS ORDERED: SUGAMMADEX SODIUM 200 MG/2 ML VIAL ONE (21:17)
[2019-01-15] MEDS ORDERED: Silver Nitrate Application 1 EACH ONE (21:20)
[2019-01-15] MEDS ORDERED: Promethazine HCl 25 MG/ML VIAL ONE (21:49)
[2019-01-15] MEDS ORDERED: Ondansetron PF 4 MG/2 ML Vial ONE (22:12)
[2019-01-15] MEDS ORDERED: Metoclopramide HCl 10 MG/2 ML VIAL IVP PRN (23:05)
[2019-01-16] MEDS: Ketorolac Tromethamine 30 MG/ML VIAL IVP SCH ×2 (01:46→07:49)
[2019-01-16] MEDS ORDERED: Sodium Chloride 0.9% 10 ML ONE (06:11)
[2019-01-16] MEDS ORDERED: Sodium Chloride 0.9% 20 ML ONE (07:46)
[2019-01-16 08:02] VITALS: BP 105/65; TEMP 98.5
--- NOTE | 2019-01-16 10:33 | OP ---
DATE OF PROCEDURE: 01/15/2019 PREOPERATIVE DIAGNOSES: 1. Abdominal pain with vaginal bleeding. 2. Right adnexal mass suggestive of ectopic . POSTOPERATIVE DIAGNOSES: 1. Abdominal pain with vaginal bleeding. 2. Right adnexal mass suggestive of ectopic . 3. Right tubal . PROCEDURES PERFORMED: Diagnostic laparoscopy with partial right salpingectomy. ANESTHESIA: General. COMPLICATIONS: None. COUNTS: Correct. FINDINGS: A pelvis with approximately 25 to 50 mL of blood and a right tubal at the ampullar portion of the tube. Otherwise, normal appearing ovaries and healthy appearing left tube. SPECIMENS: Tubal segment with products of conception. DESCRIPTION OF PROCEDURE: Ms. Deborah Bose was taken to the operating room after being counseled to medical versus surgical options for this visualized right ectopic . The patient declined medical treatment and desired to proceed with surgery after being explained the risks and benefits. The patient was taken to the operating room, where she was placed under general anesthesia and placed in dorsal lithotomy position in Jase stirrups. She was prepared and draped in a normal sterile fashion. Attention was placed vaginally, where a uterine manipulator was inserted in the uterine cavity and supported with a single-tooth tenaculum on the anterior lip of the cervix. Attention was placed abdominally, where a 5 mm skin incision was made in the base of the umbilicus. Veress needle was introduced and the abdomen was insufflated with CO2 gas. Entry pressure was 3 mmHg. With the abdomen insufflated at 12 mmHg, a 5 mm port was then introduced and confirmed by laparoscope. After inspection of the abdomen and pelvis, the patient was noted to have some minimal bleeding in the anterior cul-de-sac and posterior cul-de-sac. The patient was also noted to have a swelling in her right tube in the ampullar region closer to the fimbrial end in the isthmic portion. Left tube and ovary appeared to be normal. A 10 mm skin incision was then made in the suprapubic midline region about the level of her scar. This port was introduced with direct visualization. A blunt probe was then used for further manipulation to evaluate the posterior cul-de-sac. It did appear to be additional 25 to 50 mL of blood and fluid there. The segment of tube with the ectopic was then ligated and excised out using a LigaSure device and was removed through the 10 mm port. The area appeared to be hemostatic and the abdomen was then irrigated and cleared of all clot and debris. Reinspection of the site showed continued hemostasis. The abdomen was then deflated and the trocars were removed. The skin was closed with 4-0 Monocryl. Digital inspection of the fascial defect of the suprapubic site revealed a defect less than 1 cm. The patient was then taken to recovery room in stable condition. Job ID: [id number]
--- NOTE | 2019-01-16 10:53 | DIS ---
DATE OF ADMISSION: 01/15/2019 DATE OF DISCHARGE: 01/16/2019 The patient is seen at bedside on 01/16/2019 at roughly 10:15 to 10:25 a.m. PRINCIPAL DIAGNOSES: 1. Right ectopic . 2. Status post laparoscopy (operative). 3. Right distal salpingectomy. HOSPITAL COURSE: In brief, this is a patient admitted by Dr. Cayden Knowles, who was found to have an ectopic , who had a laparoscopic right distal salpingectomy. For full details, please turn to his operative dictation dated 01/15/2019. I evaluated the patient on 01/16/2019 prior to discharge. The patient had questions about her surgical procedure, and we went through a whole Q and A with her. The patient's nurse was with us for record. Incision was clean, dry, and intact. Abdomen was soft and nontender. She has follow up with her provider and/or [facility] in 2 weeks. Discharge medications were given by Dr. Knowles, which includes Motrin and tramadol. Job ID: [id number]
--- NOTE | 2019-01-16 13:22 | DIS ---
DATE OF ADMISSION: 01/15/2019 DATE OF DISCHARGE: 01/16/2019 HOSPITAL COURSE: The patient had a diagnostic laparoscopy with right partial salpingectomy for a right tubal late last night. She, after a couple of hours in recovery, was having retching and nausea and difficult to arouse due to the anesthesia. The patient was then brought to the floor for prolonged recovery. This morning, the patient is feeling much better. She is awake and alert. She has tolerated ice chips and has been up to the bathroom. PHYSICAL EXAMINATION: VITAL SIGNS: This morning, blood pressure is 116/58, temperature 98.7, pulse of 62, respiratory rate of 16, and saturating 98% on room air. GENERAL: She appears to be in no acute distress. She is alert and oriented, cooperative and pleasant to interact with. ABDOMEN: Appropriately tender and soft. Incisions are clean, dry, and intact. DISCHARGE INSTRUCTIONS: The patient is being discharged to home. She has tramadol and ibuprofen p.r.n. for pain control. She has been asked to follow up with [facility] [place] in 2 weeks for postoperative visit. The patient has been given correctional classification counselor to seek medical attention should she experience increasing pain, drainage, or redness from her incision sites, fever. Job ID: [id number]
[2019-01-16] MEDS ORDERED: FLU VACC QS2019-20(6MOS UP)/PF 60 MCG/0.5 ML SYRINGE IM ONE (21:00)
== END 2019-01-16 11:00 | disposition home or self-care (01) ==
LOC: ERS 14:14 → SDC/OP 19:23 → 3SE 23:13 → SDC/OP 01-16 11:00
PROVIDERS: ATTEND Obstetrics & Gynecology
PROC: 10T24ZZ Resection of Products of Conception, Ectopic, Percutaneous Endoscopic Approach (ICD-10-PCS; principal; 2019-01-15)
PROC: 0UT54ZZ Resection of Right Fallopian Tube, Percutaneous Endoscopic Approach (ICD-10-PCS; principal; 2019-01-15)
DX: O00.101 Right tubal pregnancy without intrauterine pregnancy (principal)
CPT/HCPCS: 36415; 76856; 80053; 81003; 84702; 85025; 86850; 86900; 86901; 88305; 96361; 96374; J0670; J1100; J1170; J1885; J2001; J2250; J2270; J2405; J2550; J2704; J3010

== ENCOUNTER 2020-05-16 18:13 | Inpatient (IN) | payer MEDICAID, SELFPAY ==
[2020-05-16 20:13] VITALS: BMI 29.5
[2020-05-16] MEDS ORDERED: Promethazine HCl 25 MG/ML VIAL IM PRN (20:32)
[2020-05-16] MEDS ORDERED: Ondansetron PF 4 MG/2 ML Vial IVP PRN (20:32)
[2020-05-16] MEDS ORDERED: hydrALAZINE 20 MG/ML VIAL SLOW IVP PRN (20:32)
[2020-05-16] MEDS ORDERED: Calcium Gluconate 4.6 MEQ in Sodium Chloride 0.9% 100 ML IVPB PRN (20:37)
[2020-05-16] MEDS ORDERED: Magnesium Sulfate 20 gm/500 ml 20 GM/500 ML BAG IVPB SCH (20:45)
--- NOTE | 2020-05-16 21:37 | ULT ---
EXAM: OB ultrasound COMPARISON: None. HISTORY: 28 week gestation. Premature rupture of membranes. Patient also complains of vaginal bleeding and pel lorena pain. TECHNIQUE: Multiplanar grayscale and color Doppler transabdominal sonographic images are obtained. FINDINGS: There is a single intrauterine gestation in cephalic presentation. Cardiac Doppler demonstr ates heart tones with a heart rate of 133 beats per minute. The placenta is located posteriorly without evidence of placenta previa. There is a normal amount of amniotic fluid with an a mniotic fluid index of 11.2 centimeters. The cervical length based on transabdominal imaging measures 2.5 centimeters. biometry measurements: BPD 7.16 cm -- 28 weeks 5 days HC 26.87 cm -- 29 weeks 2 days AC 22.85 cm -- 27 weeks 2 days FL 5.48 cm -- 29 weeks The estimated gestational age by ultrasound is 28 weeks 4 days with an SHIN on08/04/2020. Gestational a ge by the last menstrual period is 28 weeks 6 days. The estimated weight by ultrasound is 1176 g (2 pounds, 9 ounces). This represents 50 percentil e for weight. anatomical structures not well assessed on this exam. No definitive anomaly is visualized . Adnexal structures are not well visualized on this exam. IMPRESSION: 1. Single intrauterine gestation in cephalic presentation with heart tones documented. Estimat ed gestational age by ultrasound is 28 weeks 4 days with SHIN on 08/04/2020. 2. Estimated weight is 1176 g (2 pounds, 9 ounces). 3. Amniotic fluid index is 11.2 centimeters. 4. anatomical structures not well assessed on this exam.
--- NOTE | 2020-05-16 21:47 | HP ---
TIME OF EVALUATION: Roughly 2039, it is now 2100. LOCATION: Labor and Delivery, bed #5. CHIEF COMPLAINT: Possible PPROM ( prelabor rupture of membranes). This patient was transferred here from [facility] in [place]. The patient has care in [place], but has not established care here. Her EGA is 28 weeks and 6 days by stated due date of August 02. HISTORY OF PRESENT ILLNESS: This is a 25-year-old G6, P3, SAB 1, ectopic 1, with 1 previous , and her last delivery being a vaginal after , who is now at 28 weeks and 6 days, who presented in [place] with possible leakage of fluid. The ER physician there called me at around 7 p.m. today and told me that an AmniSure performed there was positive, but he did not do a sterile spec exam. There was no gross evidence of rupture there. The patient states that she has on and off contractions, but no further leakage as of right now. According to the ER physician in [place], they gave her Celestone 12 mg IM x1 and started magnesium sulfate 4 g load and then 2 g IV maintenance, and they started her on ampicillin for GBS coverage and then sent her here. She arrived just shortly before I saw her. REVIEW OF SYSTEMS: A complete review of systems was done and is otherwise negative unless specified in the HPI. Specifically, GENERAL: No sick contacts. No fever. No chills. PULMONARY: No shortness of breath. CARDIOVASCULAR: No chest pain. EXTREMITIES: No unusual calf pain or leg swelling. PAST MEDICAL HISTORY: Negative. MEDICATIONS: Include [place] IM injections for history of . Also vitamins. ALLERGIES: NONE. SURGERIES: Include: 1. A x1. 2. Ectopic surgery. 3. Tonsils and adenoids. 4. D and C for uterine polyps. 5. She did not have a D and C with her spontaneous miscarriage. SOCIAL HISTORY: Denies alcohol, tobacco, or drug use. OB HISTORY: Again, she has a history of a and her last delivery was vaginal and it was born at [address] Verdin did that delivery. PHYSICAL EXAMINATION: VITAL SIGNS: Blood pressure is 123/80, pulse is 104. She is afebrile. GENERAL: She is in no acute distress. PELVIC: Uterus is soft and nontender and size consistent with her dates. I performed a sterile speculum exam: Sterile speculum exam was performed after the procedure was explained to the patient. I do not see any pooling of fluid and there is no gross evidence of rupture. She does have some thick cervical mucus at the os, but it is not mucopurulent. Once again, there is no gross evidence on my sterile spec exam of rupture. External monitors: monitor shows a reactive heart tracing for gestational age with no evidence of active contraction pattern, although there is uterine irritability. Interventions ordered: I have ordered an ultrasound for presentation, weight, largest pocket, and placenta location. I have ordered the second dose of steroids to be given 24 hours from the first. I have added erythromycin to continue her ampicillin and erythromycin for latency per protocol. I have notified NICU of the patient's arrival. ASSESSMENT: This is a 25-year-old G6, P3, SAB 1, ectopic 1, with a history of a previous successful (who desires ), who is now at 28 weeks and 6 days with possible PPROM diagnosed at another location by AmniSure. PLAN: 1. I discussed with the patient the possible false positive rate of AmniSure. The ACOG states false positives can occur with this test in 20% up to 30% of the time. My sterile speculum exam does not find evidence of rupture, but due to the high- risk condition, we will treat her as ruptured for at least 48 hours with a plan to do another sterile speculum exam in 2 days and re-evaluate. 2. For now, we will continue IV ampicillin and erythromycin per ACOG protocol for latency. 3. Continue magnesium sulfate, as she is under 32 weeks, for neuroprotection. 4. Ultrasound for dates now in process. 5. NICU aware. 6. Second dose of steroids will be given tomorrow at around 6 to 7 p.m. 7. I did explain to the patient that she has a choice for a repeat or a TOLAC if possible. The patient desires a TOLAC. She understands that if the baby is breech and if she does labor under 32 weeks, then a repeat is recommended to prevent head entrapment. She is aware. Job ID: [id number] [facility]
[2020-05-16] MEDS: Butorphanol Tartrate 1 MG/ML VIAL SLOW IVP PRN (21:54)
--- NOTE | 2020-05-16 22:09 | PDOC.BPN ---
- Brief Progress Note Just informed by RN that Deborah is having more leakage of fluid. We will keep the DX of PPROM...continue plan. Sono with baby VTX, JAELYN 11...post placenta.
[2020-05-16 22:41] LABS: Hemoglobin 12.3 g/dL (12.0-16.0); Mean Corpuscular HGB CONC 35.1 g/dL (32.0-36.0); Mean Corpuscular Volume 88.5 fL (78.0-98.0); Mean Platelet Volume 7.3 fL (7.4-10.4); Platelet Count 206 thou/uL (130-400); RBC Distribution Width 11.4 % (11.5-14.5); Red Blood Cell (RBC) Count 3.95 mill/uL (4.20-5.40); White Blood Cell (WBC) Count 10.5 thou/uL (4.8-10.8)
[2020-05-16 23:19] LABS: Syphilis Antibody Nonreactive (Nonreactive); Syphilis Antibody Index 0.04 S/CO (<1.00 Non-Reactive)
[2020-05-17] MEDS: Erythromycin 500 MG in Sodium Chloride 0.9% 250 ML 250 ML IVPB SCH ×4 (00:04→20:34)
[2020-05-17] MEDS: Ampicillin 2 GM in Sodium Chloride 0.9% 100 ML IVPB SCH ×4 (01:08→19:06)
[2020-05-17 01:29] LABS: HBSAg Index 0.19 S/CO (0-0.99); HIV (1/2) Antibody/Antigen Non-Reactive (NonReactive); Hep B Surf Ag Non-Reactive S/CO (NonReactive)
[2020-05-17 04:31] LABS: HIV 1/2 INDEX 0.16 S/CO (<1.00)
--- NOTE | 2020-05-17 06:50 | PDOC.BPN ---
- Brief Progress Note HD2 Admitted yesterday EGA 29 weeks 0 days Meds: AMp/Eryhtro, Mag, steroid today S. No further leakage. Good FM. O. Afebrile. BPs 90/50s. Pulse 80-90s Pelvic deferred A/P: Suspected high leak PPROM now at 29 weeks 0 days. My initial SSE was negative and no further leakage per patient. Consider reeval in 48 hrs. For now: 1. Stop Mag as no evidence labor 2. continue latency IV ABX, then po 3. Check swabs 4. Steroid #2 today
[2020-05-17] MEDS ORDERED: FLU VACC QS2020-21(6MOS UP)/PF 60 MCG/0.5 ML SYRINGE IM ONE (09:00)
[2020-05-17] MEDS: Betamet Acet/Betamet Na Ph 30 MG/5 ML VIAL IM SCH (16:25)
[2020-05-17] MEDS: Lactated Ringer's 1,000 ML IV SCH (19:07)
[2020-05-18] MEDS: Ampicillin 2 GM in Sodium Chloride 0.9% 100 ML IVPB SCH ×4 (00:35→18:53)
--- NOTE | 2020-05-18 08:31 | PRG ---
DATE OF SERVICE: 05/18/2020 SUBJECTIVE: The patient is a 25-year-old with an intrauterine at 29 weeks and a day, presenting with a positive AmniSure test and concerns for premature rupture of membranes. However, on exam here, there was inconclusive evidence of such. The patient has been on antibiotics for latency and betamethasone for lung maturity and out of an abundance of caution. Plan is to repeat her exam this afternoon. This look for AmniSure test and physical findings. The patient reports that she has not been having any watery discharge. She has been having some thick discharge that started since arrival. The patient denies any uterine contractions or vaginal bleeding. OBJECTIVE: VITAL SIGNS: Today blood pressure is 103/59, heart rate of 82, respiratory rate 18, saturating 98% on room air, temperature 98.2. GENERAL: She appears to be in no acute distress. She is alert, oriented, cooperative, and pleasant to interact with. HEAD: Normocephalic, atraumatic. LABORATORY DATA: heart tracing shows the fetus with a baseline in the 140s with moderate long-term variability, positive 15 x 15 accelerations. Tocometer without any evidence of contractions. ASSESSMENT AND PLAN: Patient is a 25-year-old female, G6, P3, with an intrauterine at 29 weeks and a day. Here for evaluation of premature rupture of membranes; on antibiotics with a possible false positive AmniSure test. Dr. Finley is the oncoming physician and will be doing the re-evaluation. Fetus has a category 1 tracing and reactive NST. Job ID: [id number]
[2020-05-18] MEDS: Erythromycin 500 MG in Sodium Chloride 0.9% 250 ML 250 ML IVPB SCH ×4 (08:41→21:01)
[2020-05-18] MEDS: Butorphanol Tartrate 1 MG/ML VIAL SLOW IVP PRN (11:16)
[2020-05-18] MEDS: Betamet Acet/Betamet Na Ph 30 MG/5 ML VIAL IM SCH (18:56)
[2020-05-18] MEDS: Lactated Ringer's 1,000 ML IV SCH ×3 (18:56→21:01)
--- NOTE | 2020-05-18 20:09 | PDOC.BPN ---
- Brief Progress Note Encounter Date: 05/18/20 Encounter Time: 20:07 Reexamined patient. No pooling or valsalva noted on speculum exam. Cx appears closed. Amnisure pending. Will keep overnight due to complaint of contractions earlier but no gross rupture noted or PTL at this time.
[2020-05-18 20:14] LABS: Amnisure Test No Membranes Rupture (No Rupture)
[2020-05-18 20:15] LABS: Amnisure Internal Control QC ACCEPTABLE (ACCEPTABLE)
[2020-05-18] MEDS ORDERED: Acetaminophen 325 MG TAB PO SCH (22:15)
--- NOTE | 2020-05-19 06:45 | PDOC.BPN ---
- Brief Progress Note Encounter Date: 05/19/20 Encounter Time: 06:42 S: Patient doing well this morning, no complaints. Denies VB, LOF, ctx, or decreased FM. O: BP: 109/60 P: 80 R: 16 T: 99.2 Gen - AAO, NAD Abd - soft, gravid, NTTP Ext - no edema NST: Pending this am A/P: 25 y/o at 29w2d admitted for PPROM 1) PPROM - exam yesterday negative with negative amnisure. Exam on admission also negative but + amnisure in [place] prior to transfer. As previously discussed, Amnisure has a high false positive rate. Given exam findings and negative test last night, Abx were stopped. S/p 2 doses betamethasone. Will get BPP this morning. Likely d/c later today.
--- NOTE | 2020-05-19 08:23 | ULT ---
ULTRASOUND BIOPHYSICAL PROFILE: HISTORY: distress FINDINGS: A single live intrauterine gestation is seen. heart rate:145bpm JAELYN: 9.6 cm Placenta: Posterior without placenta previa Cervical length: 4.84 cm OB biophysical profile: tone: 2 breathin movements: 2 Amniotic fluid: 2 IMPRESSION: The ultrasound biophysical profile score is 8 out of 8.
--- NOTE | 2020-05-19 09:46 | DIS ---
DATE OF ADMISSION: 05/16/2020 DATE OF DISCHARGE: 05/19/2020 ADMITTING DIAGNOSIS: Possible PPROM with history of delivery at 28 weeks gestation. DISCHARGE DIAGNOSIS: Confirmed absence of rupture of membranes or labor at 28 weeks gestation. SUMMARY OF HOSPITAL COURSE: The patient was transferred from [place] with a positive AmniSure. Upon sterile spec exam here, she had no pooling fluid. JAELYN of 11 cm and ultrasound consistent with 28 weeks gestational age. Because of the positive AmniSure, she was started on antibiotics and Celestone as well as antibiotics with a plan to observe and re-evaluate and retest for rupture of membranes in 2 days. During her stay in the hospital, she had no fever, no elevated white count. COVID test was not performed she had no further pooling fluid. Repeat exam this morning by Dr. Finley revealed no pooling fluid. AmniSure was performed, which was negative for membrane rupture. Repeat ultrasound revealed an 8/8 BPP and JAELYN of 10 cm with a 4.8 cm cervical length. The patient will be discharged home. She is currently obtaining Medicaid and will follow up with the Family Medicine residency, clinic, or [facility] for antepartum care with ER precautions. Job ID: [id number]
[2020-05-19 09:49] VITALS: BP 111/61; TEMP 98.4
[2020-05-19 19:20] LABS: Chlamydia by PCR Not Detected (NotDetected); GC by PCR Not Detected (NotDetected)
== END 2020-05-19 10:25 | disposition home or self-care (01) | DRG 833 ==
LOC: L&D 19:43
PROVIDERS: ADMIT Obstetrics & Gynecology; ATTEND Obstetrics & Gynecology
DX: O47.03 False labor before 37 completed weeks of gestation, third trimester (principal); Z3A.38 38 weeks gestation of pregnancy; Z28.21 Immunization not carried out because of patient refusal; O34.211 Maternal care for low transverse scar from previous cesarean delivery
CPT/HCPCS: 36415; 76805; 76819; 83735; 84112; 85027; 86780; 86850; 86900; 86901; 87081; 87340; 87389; 87491; 87591; 99285; J0290; J0595; J0702; J1364; J2405; J2550; J3475; J3490; J7050